=== PATIENT | female | born 1955 | race Caucasian/White ===

== ENCOUNTER 2020-11-23 00:21 | Emergency (ER) | payer BC, MEDICARE ==
[~2020-11-23] VITALS: Ht 167.6 cm; Wt 48.5 kg
[~2020-11-23 00:21] MED LIST: LAMO100T17 PO; LORA1TAB PO; TIOT18CA4 IH; VENL100T4 PO; ZOCOR PO; ZOLP10TA2 PO
--- NOTE | 2020-11-23 00:28 | NUR ---
Patient BIB [facility] from [facility] for C/O nonradiating CP, describing pain as pressure and SOBthat started 1 month ago. Arrived with left wrist 20G.
[2020-11-23] MEDS ORDERED: ASPIRIN 81 MG TAB.CHEW ONE (00:45)
[2020-11-23] MEDS: ASPIRIN 81 MG TAB.CHEW PO ONE (00:46)
[2020-11-23 01:03] LABS: CREATININE 1.4 mg/dL (0.6-1.3); POTASSIUM 3.1 mmol/L (3.5-5.1)
[2020-11-23 01:11] LABS: BASOPHILS % (AUTO) 0.7 % (0.0-2.0); EOSINOPHILS # (AUTO) 0.2 K/uL (0.0-0.7); EOSINOPHILS % (AUTO) 2.9 % (0.0-7.0); HEMATOCRIT 40.6 % (31.2-41.9); HEMOGLOBIN 13.5 g/dL (10.9-14.3); LYMPHOCYTES # (AUTO) 2.4 K/uL (20.0-40.0); LYMPHOCYTES % (AUTO) 33.2 % (20.5-51.5); MEAN CORPUSCULAR HEMOGLOBIN 30.2 uug (24.7-32.8); MEAN CORPUSCULAR HGB CONC 33 g/dL (32.3-35.6); MEAN CORPUSCULAR VOLUME 90.4 fL (75.5-95.3); MONOCYTES # (AUTO) 0.7 K/uL (2.0-10.0); MONOCYTES % (AUTO) 9.3 % (0.0-11.0); NEUTROPHILS # (AUTO) 3.9 K/uL (1.8-8.9); NEUTROPHILS % (AUTO) 53.9 % (38.5-71.5); PLATELET COUNT (AUTO) 408 K/uL (179-408); RED BLOOD CELL COUNT(AUTO) 4.49 MIL/uL (3.63-4.92); WHITE BLOOD COUNT (AUTO) 7.3 K/uL (3.8-11.8)
[2020-11-23] MEDS ORDERED: POTA10TA21 PO (01:41)
[2020-11-23] MEDS: POTASSIUM BICARBONATE/CIT AC 25 MEQ TABLET.EFF PO ONE (01:47)
[2020-11-23] MEDS ORDERED: POTASSIUM BICARBONATE/CIT AC 25 MEQ TABLET.EFF ONE (01:51)
--- NOTE | 2020-11-23 01:55 | NUR ---
Called [facility], spoke to Sudhir. Informed him patient will be D/C'ed back to facility.
--- NOTE | 2020-11-23 01:59 | NUR ---
Called [facility] ambulance. ETA is 45mins.
--- NOTE | 2020-11-23 03:19 | NUR ---
Gave SBAR report to [facility] unit [facility].
--- NOTE | 2020-11-23 03:19 | NUR ---
IV removed. Catheter intact and site benign. Pressure and 4x4 gauze applied to site. No bleeding noted.
[2020-11-23 03:20] VITALS: BP 117/91
--- NOTE | 2020-11-23 03:34 | NUR ---
Patient discharged back to [facility] in stable condition. Written and verbal after care instructions given. Patient verbalizes understanding of instructions. Stressed follow up or return to ER for worsening s/s.
== END 2020-11-23 03:38 ==
LOC: ER 00:26
DX: R07.89 Other chest pain (principal); E87.6 Hypokalemia; I44.0 Atrioventricular block, first degree; J44.9 Chronic obstructive pulmonary disease, unspecified; Z87.891 Personal history of nicotine dependence; Z88.0 Allergy status to penicillin; Z88.2 Allergy status to sulfonamides; F31.9 Bipolar disorder, unspecified; Z74.01 Bed confinement status
CPT/HCPCS: 36415; 70030-TC; 71045; 83735; 85025; 85730; 93005; A4663

== ENCOUNTER 2021-05-30 13:35 | Inpatient (IN) | payer MEDICARE ==
[~2021-05-30] VITALS: Ht 165.1 cm; Wt 65.8 kg
[~2021-05-30 13:35] MED LIST changes: +POTA10TA21 PO
[2021-05-30 14:27] LABS: HEMATOCRIT 43.1 % (31.2-41.9); MEAN CORPUSCULAR HEMOGLOBIN 30.2 uug (24.7-32.8); MEAN CORPUSCULAR VOLUME 91.5 fL (75.5-95.3); PLATELET COUNT (AUTO) 405 K/uL (179-408)
[2021-05-30 14:33] LABS: CREATININE 1.8 mg/dL (0.6-1.3)
[2021-05-30] MEDS ORDERED: IV NORMAL SALINE 1000 ML BAG IV ONE ×3 (14:45→16:45)
[2021-05-30 14:46] LABS: BILIRUBIN,TOTAL 0.3 mg/dL (0.2-1.0); TOTAL PROTEIN, SERUM 7.5 g/dL (6.4-8.2)
[2021-05-30] MEDS ORDERED: ZIPR40CA2 PO (15:13)
[2021-05-30] MEDS ORDERED: QUET400T PO (15:13)
[2021-05-30] MEDS ORDERED: TOPI50TA24 PO (15:13)
[2021-05-30] MEDS ORDERED: BUPR200T3 PO (15:13)
[2021-05-30] MEDS ORDERED: IBUP-1957 PO (15:13)
[2021-05-30] MEDS ORDERED: MEGE400O5 PO (15:13)
[2021-05-30] MEDS ORDERED: QUET200T PO (15:13)
[2021-05-30] MEDS ORDERED: TRAZ-182 PO (15:13)
[2021-05-30] MEDS ORDERED: [UNRECOGNIZED DRUG - OTHER] PO (15:13)
[2021-05-30] MEDS ORDERED: PROC-11 PO (15:13)
[2021-05-30] MEDS ORDERED: TOPI200T16 PO (15:13)
[2021-05-30] MEDS ORDERED: TEMA30CA PO (15:13)
[2021-05-30] MEDS ORDERED: DULO60CA45 PO (15:13)
[2021-05-30] MEDS ORDERED: CEFTRIAXONE /D5W 50ML IVPB **ER PYXIS IV ONE (15:15)
[2021-05-30] MEDS ORDERED: CEFTRIAXONE 1 G in IV DEXTROSE 5% 50 ML IV ONE (15:15)
[2021-05-30] MEDS ORDERED: VANCOMYCIN 1G/D5W 200 ML PIGGYBACK IV ONE (16:45)
[2021-05-30 16:54] LABS: *BILIRUBIN,URIN NEGATIVE (NEGATIVE); *BLOOD, URINE NEGATIVE (NEGATIVE); *CLARITY,URINE CLEAR (CLEAR); *COLOR,URINE YELLOW (YELLOW); *KETONES,URINE NEGATIVE (NEGATIVE); *UROBILINOGEN,URINE 0.2 E.U./dl (NORMAL); LEUKOCYTE ESTERASE ,URINE NEGATIVE (NEGATIVE); NITRITE, URINE NEGATIVE (NEGATIVE); PH,URINE 7.5 (5.0-8.0); UGLUCOSE NEGATIVE (NEGATIVE)
[2021-05-30] MEDS ORDERED: MAGNESIUM HYDROXIDE 30 ML LIQUID UDC PO PRN (17:30)
[2021-05-30] MEDS ORDERED: ONDANSETRON 4 MG/2 ML VIAL IV PRN (17:30)
[2021-05-30] MEDS ORDERED: Z GUARD REMEDY PASTE 57 GM TUBE TOP PRN (17:30)
[2021-05-30] MEDS ORDERED: levETIRAcetam 500 MG/5 ML VIAL IV ONE ×2 (17:59→21:23)
[2021-05-30] MEDS ORDERED: HALOPERIDOL LACTATE 5 MG/1 ML VIAL ONE (18:12)
[2021-05-30] MEDS: levETIRAcetam IV 500 MG in IV DEXTROSE 5% 100 ML IV SCH ×2 (18:15→21:21)
--- NOTE | 2021-05-30 18:30 | NUR ---
Pt noted to be in full clonic seizure, clamped down on jaw, SPO2 dropped to 65%, MD called code blue momentarily. Pt was blue and repositioned, very slow pulse responded by increasing. 2mg ativan ordered IV -- delivered; Sz stopped, color returned but pt began pulling at wires and tubes. MD previously placed U/S guided 18g IV left A/C; pt line infiltrated during sz, subsequently pulled out IV. Medic placed IV 20 g Addendum: 05/30/21 at 1929 by [email or web address] Continued: 20g left hand IV remained patent. NS and Vancomycin held and Kepra run to that IV instead. Pt still fighting staff and pulling at tubes and wires. Soft wrist restraints ordered and applied. 5mg Haldol IM ordered and given left deltoid. Pt continued to be combative for approximately 10-15 minutes longer.
[2021-05-30] MEDS ORDERED: LORAZEPAM 2 MG/1 ML VIAL IV ONE (19:00)
[2021-05-30] MEDS ORDERED: HALOPERIDOL LACTATE 5 MG/1 ML VIAL IM STA (19:34)
[2021-05-30] MEDS: PIPERACILLIN SODIUM/TAZOBACTAM 3.375 G in IV DEXTROSE 5% 50 ML IV SCH ×2 (19:40→20:25)
[2021-05-30] MEDS: LORAZEPAM 2 MG/1 ML VIAL IV PRN (19:43)
[2021-05-30] MEDS ORDERED: PIPERACILLIN/TAZOBACTAM/D5W 50 ML IV ONE ×2 (20:21→23:20)
--- NOTE | 2021-05-30 21:55 | NUR ---
Pt transported to CCU 4 without difficulty or incident. Pt AAOx2. VSS. Placed on hospital bed in pos of comfort. denies any pain, discomfort or nausea. No s/sx of distress present
--- NOTE | 2021-05-30 22:00 | NUR ---
Patient arrived in the unit via gurney. Patient is awake, but confused, knowing her name only. Patient arrived on a non-rebreather mask on 15L/min. SAT 100%. Patient Sinus Tachycardia on the monitor, BP stable. Patient is shivering and states she is very cold. Temp 97.9 Orally. No signs of distress or SOB. Skin appears clear, no wounds or discolorations.
[2021-05-30 22:05] VITALS: BP 116/50
[2021-05-31] VITALS: BP 153/92
[2021-05-31] MEDS: IV NS 1000 ML 1,000 ML IV PRN ×2 (00:20→08:55)
[2021-05-31] MEDS: PIPERACILLIN SODIUM/TAZOBACTAM 3.375 G in IV DEXTROSE 5% 50 ML IV SCH ×2 (00:20→06:18)
--- NOTE | 2021-05-31 02:51 | NUR ---
patient SAT 100% with mask off her face. Switching her to a nasal cannula to see how she will tolerate that. No SOB or signs of distress.
[2021-05-31 04:00] VITALS: BP 121/75
--- NOTE | 2021-05-31 04:04 | NUR ---
Patient tolerating 3L via NC very well with an O2 SAT 100%. no signs of distress, no SOB.
[2021-05-31 04:56] LABS: HEMATOCRIT 39.4 % (31.2-41.9); MEAN CORPUSCULAR HEMOGLOBIN 30.1 uug (24.7-32.8); MEAN CORPUSCULAR VOLUME 90.5 fL (75.5-95.3); PLATELET COUNT (AUTO) 317 K/uL (179-408)
[2021-05-31 05:02] LABS: CREATININE 1.4 mg/dL (0.6-1.3); MAGNESIUM 1.9 mg/dL (1.8-2.4); PHOSPHOROUS 4.1 mg/dL (2.5-4.9); POTASSIUM 3.8 mmol/L (3.5-5.1)
[2021-05-31] MEDS ORDERED: PIPERACILLIN SODIUM/TAZO 3.375 GM VIAL ONE (05:41)
--- NOTE | 2021-05-31 06:48 | NUR ---
Patient transferred to 3rd floor Telemetry via hospital bed. Patient remains in stable condition A/Ox1 remains confused, requiring reorienting. Patient remains on 3L NC, SAT 99-100%. Patient remains sinus tachycardia on the monitor, BP stable. No seizure activity during shift.
--- NOTE | 2021-05-31 08:04 | NUR ---
TEXTED DR. MORAN FOR MRI APPROVAL.
--- NOTE | 2021-05-31 08:07 | NUR ---
MRI APPROVED, TECH WILL BE NOTIFIED, I'LL CALL THE TO SETUP TRANSPORTATION.
[2021-05-31] MEDS: levETIRAcetam IV 500 MG in IV DEXTROSE 5% 100 ML IV SCH ×2 (08:54→20:32)
[2021-05-31] MEDS: LORAZEPAM 2 MG/1 ML VIAL IV PRN ×2 (10:09→15:07)
[2021-05-31 11:19] VITALS: BP 137/79
--- NOTE | 2021-05-31 13:16 | NUR ---
Private ambulance came to pick her up for MRI procedure at [facility]. Patient is alert and oriented x 1, brother Panchito at bedside and was able to verify the allergies and past history to be filled out on the MRI form. Patient on oxygen at 3LPM saturating at 99%. BP: 137/79 Heart rate is 112 t:98.1 rr:18 . Patient denies of any pain. Patient is anxious and complaining of SOB. 02 sat recheck by DONOR TECHNICIAN and RN 02 sat is 99-100% in oxygen. IV site on the right left forearm inserted patent and intact .
--- NOTE | 2021-05-31 15:00 | NUR ---
Patient came back and according to the security officers and guards, MRI wasnt done because patient refused to do so. VS WNL. 02 sat @ 97% RA. Patient is alert and oriented x 1 and keeps saying she wants to go home and see her brother. Brother Panchito came @ 1400 and he took his 2 pcs ring , endorsed to the receiving nurse. left forearm IV site intact. Will endorse accordingly.
[2021-05-31] MEDS: PIPERACILLIN SODIUM/TAZOBACTAM 3.375 G in IV DEXTROSE 5% 100 ML IV SCH ×2 (15:10→21:33)
[2021-05-31] MEDS: TOPIRAMATE 100 MG TABLET PO SCH (15:23)
[2021-05-31] MEDS: buPROPion SR 100 MG TABLET.SA PO SCH (15:23)
[2021-05-31] MEDS: TOPIRAMATE 25 MG TABLET PO SCH (15:23)
[2021-05-31] MEDS ORDERED: TEMAZEPAM 15 MG CAPSULE PO PRN (15:30)
--- NOTE | 2021-05-31 16:00 | NUR ---
received report from previous nurse. patient is alert and oriented x1, confused, able to redirect at times. patient currently with iv site to left f.a in place and patent and infusing n/s at 75cc and tolerating well. patient with v/s wnl, currently on r/a spo2 95% on r/a. reminded to use call light. side rails up x2, will monitor.
[2021-05-31 16:18] VITALS: BP 135/88
[2021-05-31] MEDS ORDERED: POTASSIUM CITRATE PO SCH (17:00)
[2021-05-31] MEDS: ZIPRASIDONE 20 MG CAPSULE PO SCH (17:46)
[2021-05-31] MEDS: TRAZODONE 50 MG TABLET PO SCH (17:46)
[2021-05-31] MEDS ORDERED: TEMAZEPAM 15 MG CAPSULE PO SCH (18:00)
[2021-05-31] MEDS ORDERED: ZIPRASIDONE HCL PO SCH (18:00)
--- NOTE | 2021-05-31 19:20 | NUR ---
made aware that patient is restless, attempting to climb out of bed, pulling on iv lines and no able to redirect. New order for 1:1, noted and carried out.
[2021-06-01] MEDS: PIPERACILLIN SODIUM/TAZOBACTAM 3.375 G in IV DEXTROSE 5% 100 ML IV SCH ×3 (06:25→21:07)
--- NOTE | 2021-06-01 06:44 | NUR ---
Pt asleep at this time, no s/s of distress, no complaints of pain, no change in LOC. IV ATB administered per MD order. 1:1 sitter at bedside for safety. Kept clean and dry. Needs attended to in a timely manner.
[2021-06-01 07:32] LABS: HEMATOCRIT 36.8 % (31.2-41.9); MEAN CORPUSCULAR HEMOGLOBIN 30.8 uug (24.7-32.8); MEAN CORPUSCULAR VOLUME 91.2 fL (75.5-95.3); PLATELET COUNT (AUTO) 324 K/uL (179-408)
[2021-06-01 07:38] LABS: CREATININE 1.3 mg/dL (0.6-1.3); PHOSPHOROUS 3.9 mg/dL (2.5-4.9); POTASSIUM 3.3 mmol/L (3.5-5.1)
[2021-06-01 08:00] VITALS: BP 110/65
[2021-06-01] MEDS ORDERED: DULOXETINE 60 MG CAPSULE.DR PO SCH (09:00)
[2021-06-01] MEDS ORDERED: TOPIRAMATE 300 MG PO SCH (09:00)
[2021-06-01] MEDS ORDERED: BUPROPION HCL PO SCH (09:00)
[2021-06-01] MEDS: levETIRAcetam IV 500 MG in IV DEXTROSE 5% 100 ML IV SCH (09:14)
[2021-06-01] MEDS: MEGESTROL ACETATE 400 MG/10 ML LIQUID UDC PO SCH (09:15)
[2021-06-01] MEDS: buPROPion SR 100 MG TABLET.SA PO SCH (09:15)
[2021-06-01] MEDS: QUETIAPINE FUMARATE 200 MG TABLET PO SCH (09:16)
[2021-06-01] MEDS: TOPIRAMATE 100 MG TABLET PO SCH (09:16)
[2021-06-01] MEDS: TOPIRAMATE 25 MG TABLET PO SCH (09:16)
[2021-06-01] MEDS ORDERED: POTASSIUM CHLORIDE 20 MEQ TAB.PRT.SR PO ONE (10:00)
[2021-06-01 10:58] VITALS: BP 110/62
[2021-06-01 15:08] VITALS: BP 130/70
[2021-06-01] MEDS: ACETAMINOPHEN 325 MG TABLET PO PRN ×2 (15:40→20:50)
[2021-06-01] MEDS: ZIPRASIDONE 20 MG CAPSULE PO SCH (18:58)
[2021-06-01] MEDS: TRAZODONE 50 MG TABLET PO SCH (18:59)
[2021-06-01 20:00] VITALS: BP 124/73
[2021-06-01] MEDS: levETIRAcetam 500 MG TABLET PO SCH (20:37)
[2021-06-01] MEDS: IV NS 1000 ML 1,000 ML IV PRN (20:46)
--- NOTE | 2021-06-01 20:50 | NUR ---
TYLENOL GIVEN C/O PAIN TO HER BILATERAL UPPER SHOULDER PATIENT REQUESTED PAIN MEDICATION 8/10 LEVEL OF PAIN .
--- NOTE | 2021-06-01 21:07 | NUR ---
ZOSYN IVPB GIVEN ANTIBIOTIC AND CHECK IVF SITE PATIENT ON NORMAL SALINE AT 75 ML/HR .
--- NOTE | 2021-06-02 | NUR ---
ROUNDS MADE PATIENT IN BED SLEEPING NO RESPIRATORY DISTRESS NOTED, SITTER 1:1 AT B/S. FOR PATIENT SAFETY .
--- NOTE | 2021-06-02 04:00 | NUR ---
patient incontinent of stool ,large amt form to soft ,incontinent of urine also . sitter changed soiled linens and gown .
[2021-06-02 04:45] VITALS: BP 131/72
[2021-06-02] MEDS: PIPERACILLIN SODIUM/TAZOBACTAM 3.375 G in IV DEXTROSE 5% 100 ML IV SCH ×2 (05:13→14:00)
--- NOTE | 2021-06-02 07:20 | NUR ---
Received pt. in bed sleeping intermittently, vitals stable no c/of pain at this time. One to one sitter at bedside. Pt. AAOX3. On room air with saturation 98%. IV line patent, will continue to monitor.
[2021-06-02 08:00] VITALS: BP 136/82
[2021-06-02 08:18] LABS: HEMATOCRIT 35.7 % (31.2-41.9); MEAN CORPUSCULAR HEMOGLOBIN 30.3 uug (24.7-32.8); MEAN CORPUSCULAR VOLUME 89.7 fL (75.5-95.3); PLATELET COUNT (AUTO) 343 K/uL (179-408)
[2021-06-02] MEDS: MEGESTROL ACETATE 400 MG/10 ML LIQUID UDC PO SCH (08:31)
[2021-06-02] MEDS: TOPIRAMATE 100 MG TABLET PO SCH (08:31)
[2021-06-02] MEDS: levETIRAcetam 500 MG TABLET PO SCH ×2 (08:31→20:09)
[2021-06-02] MEDS: TOPIRAMATE 25 MG TABLET PO SCH (08:31)
[2021-06-02] MEDS: QUETIAPINE FUMARATE 200 MG TABLET PO SCH (08:37)
[2021-06-02 08:47] LABS: BILIRUBIN,TOTAL 0.3 mg/dL (0.2-1.0); CREATININE 1.4 mg/dL (0.6-1.3); MAGNESIUM 2.1 mg/dL (1.8-2.4); PHOSPHOROUS 3.5 mg/dL (2.5-4.9); POTASSIUM 3.5 mmol/L (3.5-5.1); TOTAL PROTEIN, SERUM 6.6 g/dL (6.4-8.2)
[2021-06-02 11:50] VITALS: BP 125/70
[2021-06-02] MEDS ORDERED: LEVE500T9 PO (13:03)
--- NOTE | 2021-06-02 13:20 | NUR ---
As per pt request I spoke with her brother Panchito Jack who called her at this time and inquire about her dcd. as He was informed by pt that she's been dcd. At this time I asked him if He or someone can pick pt. and be taken to Assisted living facility. Mr. Flanagan requested to speak with CM. and Also stated that He's working.
--- NOTE | 2021-06-02 13:40 | NUR ---
A call to MARLENY Arteaga to inquire patient's placement. According MARLENY notes pt need to be evaluated before been dcd. As stated by Ms. Radha FARMER she will call me with more information about pt's placement.
--- NOTE | 2021-06-02 14:13 | NUR ---
A call from Radha FARMER and as stated by her pt. has no one to evaluate her to go back to Assisted living facility and she'll call back with more information. and possible that pt. won't be dcd today.
--- NOTE | 2021-06-02 14:41 | NUR ---
1400 IV not administered no patent IV access MD aware pt. with dcd orders. Addendum: 06/02/21 at 1442 by SHELDON HOLGUIN RN pt with poor iv access no orders for ML pt. dcd today.
--- NOTE | 2021-06-02 14:55 | NUR ---
A call from Market Risk Specialist Radha to informed that pt. won't be dcd today and tomorrow she'll follow up with placement.
[2021-06-02 15:06] VITALS: BP 138/64
[2021-06-02] MEDS: ACETAMINOPHEN 325 MG TABLET PO PRN (16:17)
[2021-06-02] MEDS: ZIPRASIDONE 20 MG CAPSULE PO SCH (17:15)
[2021-06-02] MEDS: TRAZODONE 50 MG TABLET PO SCH (17:15)
--- NOTE | 2021-06-02 18:00 | NUR ---
Left pt. resting comfortably, pain well controlled. Cardiac-petersen stable with sbp within desired range. Afebrile. Pending dcd per CM tomorrow.
--- NOTE | 2021-06-02 18:30 | NUR ---
A call from MARLENY Garcia and as stated by her pt. 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
--- NOTE | 2021-06-02 18:39 | NUR ---
Patient will be dcd by jessica to [facility] for psych and rehab follow up. Patient and two brother agreeable to dcd plan. Pt's DPOA updated by MARLENY Garcia. Patient will be going to room 14B. Patient will be going via ambulance gurney.
--- NOTE | 2021-06-02 18:56 | NUR ---
Call [facility] and report given to Rhona Shah. 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 As stated by her I'll get report but I'm still waiting for inquire documentation to be faxed to us". Information will be endorse if needed it to incoming Annelise.
[2021-06-02 19:18] VITALS: BP 126/58
--- NOTE | 2021-06-02 20:43 | NUR ---
Pt picked up by ambulance at 2039. VS stable. No acute distress noted. Discharged in stable condition. D/C to [facility]. IV removed. Paperworks and belongings with patient.
[2021-06-03 11:06] LABS: A/G RATIO 0.9 (0.7-1.7); ALBUMIN 2.8 g/dL (2.9-4.4); ALPHA-1-GLOBULIN 0.3 g/dL (0.0-0.4); ALPHA-2-GLOBULIN 0.9 g/dL (0.4-1.0); GAMMA GLOBULIN 0.9 g/dL (0.4-1.8); M-SPIKE Not Observed g/dL (Not Observed)
== END 2021-06-02 21:00 | DRG 100 ==
LOC: ER 13:35 → CCU 21:27 → TELE3 05-31 06:40
PROVIDERS: ADMIT Internal Medicine; ATTEND Internal Medicine
DX: R56.9 Unspecified convulsions (principal); I21.A1 Myocardial infarction type 2; N17.0 Acute kidney failure with tubular necrosis; M62.82 Rhabdomyolysis; F31.64 Bipolar disorder, current episode mixed, severe, with psychotic features; E11.9 Type 2 diabetes mellitus without complications; I10 Essential (primary) hypertension; Z20.822 Contact with and (suspected) exposure to COVID-19; Z99.3 Dependence on wheelchair
CPT/HCPCS: 36415; 70030-TC; 70450; 71045; 76770; 83605; 83735; 83970; 84100; 84155; 84165; 85025; 86850; 86900; 86901; 87040; 87086; 93005; 93307; A4663; C1758; G0378; J0696; J1630; J1953; J2060; J2543; J3490; J7030; J7060; J8999